=== PATIENT | female | born 1980 | race African-American/Black ===

== ENCOUNTER 2016-06-07 17:17 | Emergency (ER) | payer MEDICARE, OTHER ==
[~2016-06-07] VITALS: Ht 165.1 cm; Wt 120.0 kg
[~2016-06-07 17:17] MED LIST: HYDR-3535 PO; MACR100C PO; PREN0.01 PO
[2016-06-07 17:19] VITALS: BP 141/68; PULSE 76; RESP 20; TEMP 97.3; O2SAT 97
[2016-06-07] MEDS ORDERED: SODIUM CHLORIDE 0.9% FLUSH 5 ML FLUSH IVF PRN (17:30)
[2016-06-07] MEDS ORDERED: SODIUM CHLOR 0.9% 1000 ML INJ 1,000 ML IV ONE (17:30)
--- NOTE | 2016-06-07 17:40 | PD ---
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 Patient reports that she has not had her period since December 2015, reports that she is sexually active.Reports that she did have a by Dr Scruggs in December 2015 (first 2 children were born via natural delivery). Patient reports that she thinks that she may be but isn't sure. Patient has not taken any home test but reports that she noticed some vaginal bleeding today. Reports that she passed a big clot today and her friend made her come to the ER for evaluation. Patient reports that prior to passing the blood clot, she had increased lower abdominal cramping and pain, reports no pain at this time. PFSH Past Medical History Blood Disorders: Yes Diminished Hearing: No Neurologic: Yes (STATES SHE HAS FLUID ON BRAIN BUT HAS NO SHUNT) Myocardial Infarction: Yes ?: Unknown : 2 Para: 2 Past Surgical History Tonsillectomy: No Social History Alcohol Use: No Tobacco Use: No Substance Use: No Allergies-Medications (Allergen,Severity, Reaction): Coded Allergies: No Known Allergies (Verified , 06/07/16) Reported Meds & Prescriptions Reported Meds & Active Scripts Active Macrobid (Nitrofurantoin Macrocrystals) 100 Mg Cap 100 Mg PO BID Vit ( Plus) (Prenat Multivit/[place]/Iron/Folic Ac) Tab 1 Tab PO DAILY Reported Lortab 10 mg/325 mg (Hydrocodone/Acetaminophen 10 mg/325 mg) 1 Tab 1 Tab PO Q6HR PRN Review of Systems General / Constitutional: No: Fever Eyes: No: Visual changes HENT: No: Headaches Cardiovascular: No: Chest Pain or Discomfort Respiratory: No: Shortness of Breath Gastrointestinal: Positive: Abdominal Pain Genitourinary: Positive: Vaginal Bleeding, No: Dysuria Musculoskeletal: No: Pain Skin: No Rash Neurologic: No: Weakness Psychiatric: No: Depression Endocrine: No: Polydipsia Hematologic/Lymphatic: No: Easy Bruising Physical Exam Narrative GENERAL: No acute distress, nontoxic SKIN: Warm and dry. HEAD: Atraumatic. Normocephalic. EYES: Pupils equal and round. No scleral icterus. Injected bilaterally ENT: No nasal bleeding or discharge. Mucous membranes pink and moist. NECK: Trachea midline. No JVD. CARDIOVASCULAR: Regular rate and rhythm. No murmur appreciated. RESPIRATORY: No accessory muscle use. Clear to auscultation. Breath sounds equal bilaterally. GASTROINTESTINAL: Abdomen soft, non-tender, nondistended. Hepatic and splenic margins not palpable. : exam performed with RN at bedside, pt with closed cervical os, pt with mild amount of blood in vaginal vault, no cmt or adnexal tenderness MUSCULOSKELETAL: No obvious deformities. No clubbing. No cyanosis. No edema. NEUROLOGICAL: Awake and alert. No obvious cranial nerve deficits. Motor grossly within normal limits. Normal speech. PSYCHIATRIC: Appropriate mood and affect; insight and judgment normal. Data Data Last Documented VS Vital Signs Date Time Temp Pulse Resp B/P Pulse Ox O2 Delivery O2 Flow Rate FiO2 06/07/16 17:26 80 18 06/07/16 17:19 97.3 141/68 97 Room Air Orders Beta Hcg (Quant/Titer) (06/07/16 17:30) Complete Blood Count With Diff (06/07/16 17:30) Comprehensive Metabolic Panel (06/07/16 17:30) Gc And Chlamydia Pcr (06/07/16 17:30) Wet Prep Profile (06/07/16 17:30) Urinalysis - C+S If Indicated (06/07/16 17:30) Iv Access Insert/Monitor (06/07/16 17:30) Sodium Chloride 0.9% Flush (Ns Flush) (06/07/16 17:30) Ed Urine Pregnancytest Poc (06/07/16 17:30) Sodium Chlor 0.9% 1000 Ml Inj (Ns 1000 M (06/07/16 17:30) Drug Screen, Random Urine (06/07/16 17:32) Us Pelvis (Ques Pr/Ect)W Trans (06/07/16 ) Type And Screen (06/07/16 18:01) Urine Culture (06/07/16 17:40) Ceftriaxone Inj (Rocephin Inj) (06/07/16 19:00) Labs Laboratory Tests Test 06/07/16 06/07/16 17:40 18:14 White Blood Count 10.8 TH/MM3 Red Blood Count 4.78 MIL/MM3 Hemoglobin 14.3 GM/DL Hematocrit 41.8 % Mean Corpuscular Volume 87.3 FL Mean Corpuscular Hemoglobin 29.9 PG Mean Corpuscular Hemoglobin 34.2 % Concent Red Cell Distribution Width 13.6 % Platelet Count 259 TH/MM3 Mean Platelet Volume 7.9 FL Neutrophils (%) (Auto) 54.0 % Lymphocytes (%) (Auto) 41.1 % Monocytes (%) (Auto) 3.4 % Eosinophils (%) (Auto) 1.0 % Basophils (%) (Auto) 0.5 % Neutrophils # (Auto) 5.8 TH/MM3 Lymphocytes # (Auto) 4.4 TH/MM3 Monocytes # (Auto) 0.4 TH/MM3 Eosinophils # (Auto) 0.1 TH/MM3 Basophils # (Auto) 0.1 TH/MM3 CBC Comment DIFF FINAL Differential Comment Urine Color RED Urine Turbidity HAZY Urine pH 6.0 Urine Specific [place] 1.037 Urine Protein 100 mg/dL Urine Glucose (UA) NEG mg/dL Urine Ketones 10 mg/dL Urine Occult Blood LARGE Urine Nitrite NEG Urine Bilirubin NEG Urine Urobilinogen LESS THAN 2.0 MG/DL Urine Leukocyte Esterase MOD Urine RBC /hpf Urine WBC 32 /hpf Urine Squamous Epithelial 13 /hpf Cells Urine Mucus FEW /lpf Microscopic Urinalysis Comment CULTURE INDICATED Sodium Level 138 MEQ/L Potassium Level 4.0 MEQ/L Chloride Level 106 MEQ/L Carbon Dioxide Level 24.4 MEQ/L Anion Gap 8 MEQ/L Blood Urea Nitrogen 11 MG/DL Creatinine 0.97 MG/DL Estimat Glomerular Filtration 80 ML/MIN Rate Random Glucose 86 MG/DL Calcium Level 8.8 MG/DL Total Bilirubin 0.6 MG/DL Aspartate Amino Transf 21 U/L (AST/SGOT) Alanine Aminotransferase 20 U/L (ALT/SGPT) Alkaline Phosphatase 68 U/L Total Protein 8.1 GM/DL Albumin 3.7 GM/DL Human Chorionic Gonadotropin, 1253 MIU/ML Quant Blood Type A POSITIVE Antibody Screen NEGATIVE MDM Medical Decision Making Medical Screen Exam Complete: Yes Emergency Medical Condition: Yes Interpretation(s) Vital Signs Date Time Temp Pulse Resp B/P Pulse Ox O2 Delivery O2 Flow Rate FiO2 06/07/16 17:26 80 18 06/07/16 17:19 97.3 76 20 141/68 97 Room Air Differential Diagnosis Irregular vaginal bleeding, spontaneous miscarriage, threatened miscarriage, uterine fibroid, menses Narrative Course Patient is a 35-year-old female who presents to emergency room with complaints of vaginal bleeding which started today. Patient reports that she has not had her period for the past 5 months, patient is concerned that she may be having a miscarriage at this time. Patient reports that she passed a large clot today, patient unsure what the clot is. CBC, BMP, HCG quant as well as urine preg test ordered for evaluation of symptoms. Plan to perform pelvic exam and evaluate vaginal bleeding. Pt's urine is positive - ultrasound ordered pt signed out to care of Dr García at discharge Diagnosis Primary Impression: UTI (urinary tract infection) Qualified Code: N30.01 - Acute cystitis with hematuria Luann Macias DO Jun 07, 2016 17:40
[2016-06-07 18:04] LABS: AUTOMATED NEUTROPHIL # 5.8 TH/MM3 (1.8-7.7); BASOPHIL # 0.1 TH/MM3 (0-0.2); BASOPHIL % 0.5 % (0.0-2.0); EOSINOPHIL # 0.1 TH/MM3 (0-0.4); HEMATOCRIT 41.8 % (35.0-46.0); HEMO FLAGS DIFF FINAL; LYMPH % 41.1 % (9.0-44.0); LYMPHOCYTE # 4.4 TH/MM3 (1.0-4.8); MEAN CELL VOLUME 87.3 FL (80.0-100.0); MEAN CORPUSCULAR HEMOGLOBIN 29.9 PG (27.0-34.0); MEAN CORPUSCULAR HGB CONC 34.2 % (32.0-36.0); MONO % 3.4 % (0.0-8.0); PLATELET COUNT 259 TH/MM3 (150-450); RED BLOOD COUNT 4.78 MIL/MM3 (4.00-5.30); RED CELL DISTRIBUTION WIDTH 13.6 % (11.6-17.2); WHITE BLOOD COUNT 10.8 TH/MM3 (4.0-11.0)
[2016-06-07 18:41] LABS: ALKALINE PHOSPHATASE 68 U/L (45-117); BETA HCG QUANT 1253 MIU/ML (0-5); TOTAL BILIRUBIN ADULT 0.6 MG/DL (0.2-1.0)
[2016-06-07 18:45] LABS: BLOOD, URINE LARGE (NEG); COMMENT (UR) CULTURE INDICATED; CULTURE IF INDICATED CULTURE INDICATED; GLUCOSE,URINE NEG (NEG); KETONE, URINE 10 mg/dL (NEG); MUCUS URINE FEW /lpf (OCC); NITRITE,URINE NEG (NEG); SQUAMOUS EPITHELIAL CELL URINE 13 /hpf (0-5)
[2016-06-07 18:47] LABS: URINE COLOR RED (YELLW/STRAW)
[2016-06-07 18:52] LABS: ALT (GPT) 20 U/L (10-53); ANION GAP 8 MEQ/L (5-15); AST (GOT) 21 U/L (15-37); BICARBONATE 24.4 MEQ/L (21.0-32.0); BLOOD UREA NITROGEN 11 MG/DL (7-18); CHLORIDE 106 MEQ/L (98-107); GLOMERULAR FILTRATION RATE 80 ML/MIN (>89); SODIUM (NA) 138 MEQ/L (136-145)
[2016-06-07] MEDS ORDERED: cefTRIAXone INJ 1,000 MG in SODIUM CHLORIDE 0.9% INJ 100 ML IV ONE (19:00)
[2016-06-07 19:28] LABS: AMPHETAMINE, URINE NEG (NEG); BARBITURATES, URINE NEG (NEG); COCAINE, URINE NEG (NEG)
--- NOTE | 2016-06-07 20:02 | RADRPT ---
EXAM DATE/TIME: 06/07/2016 19:13 [facility] COMPARISON: US PELVIS (QUEST PREG/ECTOPIC) W/TRANSVAG, May 03, 2015, 11:14. INDICATIONS : Bleeding with . LAB(S): Beta-hC MEDICAL HISTORY : Myocardial infarction. . Hydrocephalus. SURGICAL HISTORY : section. ENCOUNTER: Initial ACUITY: 1 day PAIN SCORE: 0/10 LOCATION: Bilateral pelvis MEASUREMENTS: UTERUS: 11.3 x 6.3 x 5.7 cm ENDOMETRIAL STRIPE: 4 mm RIGHT OVARY: 4.7 x 3.1 x 1.9 cm LEFT OVARY: 3.3 x 2.4 x 2.1 cm FINDINGS: Endometrial stripe has a homogeneous echotexture. No gestational sac is identified. There is a roun d intermediate echotexture. The right ovary which measures 1.0 x 1.2 x 0.9 cm. No increased flow se en about or within the structure on color Doppler. The remainder of the ovaries are unremarkable. N o free fluid. CONCLUSION: Intrauterine cannot be confirmed. No gestational sac seen. Focal abnormality within the r ight adnexa may represent a complicated cyst, no flow seen within or about this area. No evidence of free fluid. Recommend close clinical followup and monitoring of serial beta-hCG. Enrrique Johnston MD on June 07, 2016 at 19:57 Board Certified Radiologist. This report was verified electronically.
[2016-06-07 20:56] LABS: CHLAMYDIA PCR NOT DETECTED (NOT DETECT); NEISSERIA PCR NOT DETECTED (NOT DETECT)
[2016-06-07] MEDS ORDERED: MACR100C2 PO (21:04)
--- NOTE | 2016-06-07 21:06 | PD ---
Data Data Last Documented VS Vital Signs Date Time Temp Pulse Resp B/P Pulse Ox O2 Delivery O2 Flow Rate FiO2 06/07/16 17:26 80 18 06/07/16 17:19 97.3 141/68 97 Room Air Orders Beta Hcg (Quant/Titer) (06/07/16 17:30) Complete Blood Count With Diff (06/07/16 17:30) Comprehensive Metabolic Panel (06/07/16 17:30) Gc And Chlamydia Pcr (06/07/16 17:30) Wet Prep Profile (06/07/16 17:30) Urinalysis - C+S If Indicated (06/07/16 17:30) Iv Access Insert/Monitor (06/07/16 17:30) Sodium Chloride 0.9% Flush (Ns Flush) (06/07/16 17:30) Ed Urine Pregnancytest Poc (06/07/16 17:30) Sodium Chlor 0.9% 1000 Ml Inj (Ns 1000 M (06/07/16 17:30) Drug Screen, Random Urine (06/07/16 17:32) Us Pelvis (Ques Pr/Ect)W Trans (06/07/16 ) Type And Screen (06/07/16 18:01) Urine Culture (06/07/16 17:40) Ceftriaxone Inj (Rocephin Inj) (06/07/16 19:00) Labs Laboratory Tests Test 06/07/16 06/07/16 06/07/16 17:40 17:57 18:14 White Blood Count 10.8 TH/MM3 Red Blood Count 4.78 MIL/MM3 Hemoglobin 14.3 GM/DL Hematocrit 41.8 % Mean Corpuscular Volume 87.3 FL Mean Corpuscular Hemoglobin 29.9 PG Mean Corpuscular Hemoglobin 34.2 % Concent Red Cell Distribution Width 13.6 % Platelet Count 259 TH/MM3 Mean Platelet Volume 7.9 FL Neutrophils (%) (Auto) 54.0 % Lymphocytes (%) (Auto) 41.1 % Monocytes (%) (Auto) 3.4 % Eosinophils (%) (Auto) 1.0 % Basophils (%) (Auto) 0.5 % Neutrophils # (Auto) 5.8 TH/MM3 Lymphocytes # (Auto) 4.4 TH/MM3 Monocytes # (Auto) 0.4 TH/MM3 Eosinophils # (Auto) 0.1 TH/MM3 Basophils # (Auto) 0.1 TH/MM3 CBC Comment DIFF FINAL Differential Comment Urine Color RED Urine Turbidity HAZY Urine pH 6.0 Urine Specific [place] 1.037 Urine Protein 100 mg/dL Urine Glucose (UA) NEG mg/dL Urine Ketones 10 mg/dL Urine Occult Blood LARGE Urine Nitrite NEG Urine Bilirubin NEG Urine Urobilinogen LESS THAN 2.0 MG/DL Urine Leukocyte Esterase MOD Urine RBC /hpf Urine WBC 32 /hpf Urine Squamous Epithelial 13 /hpf Cells Urine Mucus FEW /lpf Microscopic Urinalysis Comment CULTURE INDICATED Sodium Level 138 MEQ/L Potassium Level 4.0 MEQ/L Chloride Level 106 MEQ/L Carbon Dioxide Level 24.4 MEQ/L Anion Gap 8 MEQ/L Blood Urea Nitrogen 11 MG/DL Creatinine 0.97 MG/DL Estimat Glomerular Filtration 80 ML/MIN Rate Random Glucose 86 MG/DL Calcium Level 8.8 MG/DL Total Bilirubin 0.6 MG/DL Aspartate Amino Transf 21 U/L (AST/SGOT) Alanine Aminotransferase 20 U/L (ALT/SGPT) Alkaline Phosphatase 68 U/L Total Protein 8.1 GM/DL Albumin 3.7 GM/DL Human Chorionic Gonadotropin, 1253 MIU/ML Quant Urine Opiates Screen POS Urine Barbiturates Screen NEG Urine Amphetamines Screen NEG Urine Benzodiazepines Screen NEG Urine Cocaine Screen NEG Urine Cannabinoids Screen POS Clue Cells (Wet Prep) NONE SEEN Vaginal Trichomonas (Wet Prep) NONE SEEN Vaginal Yeast (Wet Prep) NONE SEEN Blood Type A POSITIVE Antibody Screen NEGATIVE [facility] Medical Record Reviewed: Yes Supervised Visit with JAYNA: No Narrative Course CBC & BMP Diagram 06/07/16 17:40 LFTs normal HCG 1,253 Tox positive for opiates and cannabinoids UA: UA v contamination with hematuria Wet prep: negative x 3 Last 24 hours Impressions Pelvis Ultrasound 06/07/16 0000 Signed Impressions: Service Date/Time: Tuesday, June 07, 2016 19:13 - CONCLUSION: Intrauterine cannot be confirmed. No gestational sac seen. Focal abnormality within the right adnexa may represent a complicated cyst, no flow seen within or about this area. No evidence of free fluid. Recommend close clinical followup and monitoring of serial beta-hCG. Enrrique Johnston MD On exam at about 8:50 PM the patient has no abdominal tenderness. She has no pain in the back or tenderness to percussion of the back. Per prior provider the os is closed. Possibility of ectopic is not excluded entirely though considered less likely. The patient is hemodynamically stable. Blood type is A+. The patient has follow-up with Dr. Rossi of obstetrics previously. She understands the necessity of 48 hour follow-up for a repeat beta and evaluation. She has confirmed intent to do so. She understands she can return here at any time if she cannot establish follow-up or if she develops abdominal pain severe vaginal bleeding nausea vomiting fever or for any reason she considers appropriate. Pt's significant other and close friend were present during re-evaluation and agree to assist pt with following through with plans. Diagnosis Primary Impression: UTI (urinary tract infection) Qualified Code: N30.01 - Acute cystitis with hematuria Additional Impressions: Encounter for assessment for suspected ectopic Elevated serum human chorionic gonadotropin (hCG) level Vaginal bleeding Referrals: ANGELA ROSSI M.D. 1 day Additional Instruction: You have a choice when it comes to health care, and we are glad that you chose [facility]. Hopefully, we have met your expectations on today's visit. You are welcome to return to [facility] at any time, as we are committed to meeting the health care needs of our community. Med/Other Pt SpecificInfo: Prescription(s) given Scripts Nitrofurantoin Monohydrate Macrocrystals (Macrobid)100 Mg [id number] Mg PO BID 5 Days Ref 0 Prov:Delfino García MD 06/07/16 Disposition: 01 DISCHARGE HOME Condition: Stable Delfino García MD Jun 07, 2016 21:06
== END 2016-06-07 21:37 | disposition home or self-care (01) ==
LOC: NEPC 17:17
DX: N30.01 Acute cystitis with hematuria (principal); N93.9 Abnormal uterine and vaginal bleeding, unspecified
CPT/HCPCS: 76700; 76817; 80053; 80307; 81001; 84702; 84703; 85025; 86850; 86900; 86901; 87086; 87210; 87491; 87591; 96361; 96365; 99284; J0696; J7030